=== PATIENT | female | born 1970 | race Caucasian/White ===

== ENCOUNTER → 2017-04-11 | Outpatient (CLI) | payer BC, OTHER ==
--- NOTE | 2017-04-11 19:45 | KCIC ---
Bilateral digital screening mammograms: Reason for examination: Routine screening. Comparison is made to previous studies dated 03/26/2016 and 03/24/2015. The skin and nipples show no abnormalities. No abnormal axillary lymph nodes are seen. The breast parenchyma shows scattered fibroglandular density. (Breast density: Category B.) There continues to be asymmetric parenchyma in the upper outer quadrant of the right breast which has not changed. There are no new dominant masses, suspicious calcifications or architectural distortions. A few benign calcifications are again seen. Impression: No evidence of malignancy. Recommend routine screening. BI-RADS Category 2: Benign. "Our facility is accredited by the [employer] Mammography [employer]." This patient's information has been entered into a reminder system for the patient to be notified with the results of her examination and a target date for the next mammogram. Electronically signed by: Tania Sanders MD (04/11/2017 7:42 PM)
== END | disposition home or self-care (01) ==
LOC: KCIC MAMMO 12:23
PROVIDERS: ATTEND Obstetrics & Gynecology
DX: Z12.31 Encounter for screening mammogram for malignant neoplasm of breast (principal)
CPT/HCPCS: G0202; 77067

== ENCOUNTER → 2018-04-17 | Outpatient (CLI) | payer BC, OTHER | END | disposition home or self-care (01) | LOC: KCIC MAMMO 10:16 | DX: Z12.31 Encounter for screening mammogram for malignant neoplasm of breast (principal) | CPT/HCPCS: 77063; 77067 ==

== ENCOUNTER → 2019-03-08 | Outpatient (CLI) | payer BC, OTHER ==
--- NOTE | 2019-03-08 16:00 | KCIC ---
EXAM: Pelvic sonogram. HISTORY: Breakthrough bleeding. TECHNIQUE: Transabdominal and transvaginal sonographic imaging of the pelvis was performed. COMPARISON: None. FINDINGS: The uterus measures 7.8 x 3.1 x 6.0 cm. The endometrial stripe measures 3.3 mm in thickness. The ovaries are normal in size and demonstrate normal blood flow. There is multiple nabothian cysts within the cervix. There is trace fluid within the endocervical canal. There is a uterine fibroid along the superior right uterine fundus measuring 2.3 x 2.3 x 2.0 cm. There is a calcification within the mid uterine segment. There is no pelvic free fluid. IMPRESSION: 1. 2.3 cm uterine fibroid. 2. Nabothian cysts within the cervix and trace endocervical canal fluid. 3. Sonographically unremarkable ovaries. Electronically signed by: Farida Jo MD (03/08/2019 3:56 PM) [id number]
== END | disposition home or self-care (01) ==
LOC: KCIC US 12:07
PROVIDERS: ATTEND Family Medicine
DX: N88.8 Other specified noninflammatory disorders of cervix uteri (principal); D25.9 Leiomyoma of uterus, unspecified
CPT/HCPCS: 76830; 76856

== ENCOUNTER → 2019-04-18 | Outpatient (CLI) | payer BC, OTHER ==
--- NOTE | 2019-04-18 13:43 | KCIC ---
Bilateral digital screening mammograms with 3-D tomosynthesis: Reason for examination: Routine screening. Comparison is made to previous studies dated 04/17/2018 and 04/11/2017. Bilateral mammograms in CC and oblique projections were obtained with 2-D imaging and 3-D tomosynthesis imaging on a Siemens Inspiration unit and reviewed on the workstation. Interpretation was made with the benefit of CAD. The skin and nipples show no abnormalities. No abnormal axillary lymph nodes are seen. The breast parenchyma shows scattered fatty and fibroglandular density. (Breast density: Category B.) There continues to be asymmetric parenchyma with some nodular densities in the right breast which are stable. There also continue to be small nodular parenchymal densities in the left breast which are stable. There are no new dominant masses, suspicious calcifications or architectural distortion. Impression: No evidence of malignancy. Recommend routine screening. BI-RAD Category 2: Benign. "Our facility is accredited by the [employer]ammography [employer]." This patient's information has been entered into a reminder system for the patient to be notified with the results of her examination and a target date for the next mammogram. Electronically signed by: Tania Sanders MD (04/18/2019 1:40 PM) [id number]
== END | disposition home or self-care (01) ==
LOC: KCIC MAMMO 12:34
PROVIDERS: ATTEND Obstetrics & Gynecology
DX: Z12.31 Encounter for screening mammogram for malignant neoplasm of breast (principal)
CPT/HCPCS: 77063; 77067

== ENCOUNTER → 2020-03-21 | Outpatient (CLI) | payer BC, OTHER ==
--- NOTE | 2020-03-21 20:00 | RAD ---
Exam: Right lower extremity venous duplex study INDICATION: Leg swelling TECHNIQUE: Using a combination of real-time ultrasound imaging and color-flow and pulse Doppler imaging techniques along with graded compression and augmentation, duplex evaluation of the deep venous systems of rightlower extremity was performed. Multiple images were obtained. Findings: There is no sonographic evidence for deep venous thrombosis involving the visualized deep venous structures of the right lower extremity. IMPRESSION: No acute DVT in the right lower extremities. Electronically signed by: Karin Morales MD (03/21/2020 7:57 PM) [id number]
== END ==
LOC: US 18:41
DX: M79.89 Other specified soft tissue disorders (principal); M25.571 Pain in right ankle and joints of right foot; R79.1 Abnormal coagulation profile
CPT/HCPCS: 93971

== ENCOUNTER → 2020-04-22 | Outpatient (CLI) | payer BC, OTHER ==
--- NOTE | 2020-04-22 15:51 | KCIC ---
Bilateral digital screening mammograms with 3-D tomosynthesis: Reason for examination: Routine screening. Comparison is made to previous studies dated back to 04/11/2017. Bilateral mammograms in CC and oblique projections were obtained with 2-D imaging and 3-D tomosynthesis imaging on a Siemens Inspiration unit and reviewed on the workstation. Interpretation was made with the benefit of CAD. The skin and nipples show no abnormalities. No abnormal axillary lymph nodes are seen. The breast parenchyma shows scattered fatty and fibroglandular density. (Breast density: Category B.) There continues to be asymmetric parenchyma in the right breast. There are no new dominant masses, suspicious calcifications or architectural distortion. Benign calcifications are present. Impression: No evidence of malignancy. Recommend routine screening. BI-RAD Category 2: Benign. "Our facility is accredited by the [employer] Mammography Program." This patient's information has been entered into a reminder system for the patient to be notified with the results of her examination and a target date for the next mammogram. Electronically signed by: Tania Sanders MD (04/22/2020 3:49 PM) [id number]
== END | disposition home or self-care (01) ==
LOC: KCIC MAMMO 10:28
PROVIDERS: ATTEND Family Medicine
DX: Z12.31 Encounter for screening mammogram for malignant neoplasm of breast (principal); N64.89 Other specified disorders of breast
CPT/HCPCS: 77063; 77067

== ENCOUNTER 2021-03-24 10:23 | Emergency (ER) | payer BC, OTHER ==
[~2021-03-24] VITALS: Ht 157.5 cm; Wt 61.3 kg
[2021-03-24] MEDS ORDERED: IV NORMAL SALINE 1000ML BAG 1,000 ML IV ONE ×2 (10:45→12:30)
[2021-03-24 10:46] LABS: BASO % 1 % (0-3); EOS # 0.1 x10^3/uL (0.0-0.7); EOS % 2 % (0-3); HEMATOCRIT 37.1 % (36.0-47.0); HEMOGLOBIN 12.6 g/dL (12.0-15.5); LYMPH # 0.8 x10^3/uL (1.0-4.8); LYMPH % 17 % (24-48); MEAN CORPUSCULAR HEMOGLOBIN 34 pg (25-35); MEAN CORPUSCULAR HGB CONC 34 g/dL (31-37); MEAN CORPUSCULAR VOLUME 98 fL (79-100); MONO # 0.7 x10^3/uL (0.0-1.1); MONO % 15 % (0-9); NEUT # 2.9 x10^3/uL (1.8-7.7); NEUT % 66 % (31-73); PLATELET COUNT 261 x10^3/uL (140-400); RED BLOOD COUNT 3.77 x10^6/uL (3.50-5.40); RED CELL DISTRIBUTION WIDTH 13.6 % (11.5-14.5); WHITE BLOOD COUNT 4.4 x10^3/uL (4.0-11.0)
[2021-03-24 10:58] LABS: CALCIUM 8.8 mg/dL (8.5-10.1); CREATININE 0.9 mg/dL (0.6-1.0); GFR 66.5; POTASSIUM 3.6 mmol/L (3.5-5.1)
--- NOTE | 2021-03-24 10:58 | ED.ADGEN ---
Past Medical History Past Medical History: Migraines, Other Additional Past Medical Histor: PMDD, obesity Past Surgical History: Other Additional Past Surgical Histo: sinus surgery, gastric sleeve, Gastric bypass Riri en y Smoking Status: Never Smoker Alcohol Use: Rarely Drug Use: None General Adult EDM: Chief Complaint: SYNCOPE HPI: HPI: Patient is a 50 year old female, brought to the emergency department by EMS today after having a syncopal episode while waiting in the lobby at a doctor's office to be evaluated for trigger finger. Patient states yesterday she noticed she felt lightheaded with position changes. She denies any nausea, vomiting, diarrhea, chest pain, palpitations, fever, cough, shortness of breath, swelling of her extremities, dysuria, hematuria, or increased urinary frequency. Patient denies any headache, numbness, tingling, or weakness. She denies any difficulty with speech or ambulation. She currently denies any complaints. Patient states that before she passed out she did feel sweaty all over and light headed, she denies any chest pain, palpitations, or headache prior to the syncopal episode. She currently denies any pain. She denies hitting her head when she passes out, pt did fall to the floor and the fall was witnessed by office staff who also denied any head injury. Review of Systems: Review of Systems: Complete ROS is negative unless otherwise noted in HPI. Current Medications: Current Medications Medications (Trade) Dose Ordered Sig/[facility] Start Time Stop Time Status Last Admin Dose Admin Sodium Chloride 1,000 ml @ 1,000 mls/hr 1X ONCE 03/24/21 12:30 03/24/21 13:29 DC 03/24/21 12:30 1,000 MLS/HR Allergies: Allergies: Allergies Coded Allergies Type Severity Reaction Last Updated Verified No Known Drug Allergies 03/24/21 No Physical Exam: PE: See Above Constitutional: Well developed, well nourished, no acute distress, non-toxic appearance. [] HENT: Normocephalic, atraumatic, bilateral external ears normal, nose normal. [] Eyes: PERRLA, EOMI, conjunctiva normal, no discharge. [] Neck: Normal range of motion, no stridor. [] Cardiovascular:Heart rate regular rhythm Lungs & Thorax: Respirations even and unlabored, no retractions, no respiratory distress Abdomen: soft, no tenderness Skin: Warm, dry, no erythema, no rash. [] Extremities: No cyanosis, ROM intact, no edema. [] Neurologic: Alert and oriented X 3, normal motor, normal sensory, no focal deficits noted. [] Psychologic: Affect normal, judgement normal, mood normal. [] Current Patient Data: Labs: Laboratory Tests Test 03/24/21 10:30 03/24/21 13:14 03/24/21 13:31 White Blood Count 4.4 x10^3/uL (4.0-11.0) Red Blood Count 3.77 x10^6/uL (3.50-5.40) Hemoglobin 12.6 g/dL (12.0-15.5) Hematocrit 37.1 % (36.0-47.0) Mean Corpuscular Volume 98 fL (79-100) Mean Corpuscular Hemoglobin 34 pg (25-35) Mean Corpuscular Hemoglobin Concent 34 g/dL (31-37) Red Cell Distribution Width 13.6 % (11.5-14.5) Platelet Count 261 x10^3/uL (140-400) Neutrophils (%) (Auto) 66 % (31-73) Lymphocytes (%) (Auto) 17 % (24-48) L Monocytes (%) (Auto) 15 % (0-9) H Eosinophils (%) (Auto) 2 % (0-3) Basophils (%) (Auto) 1 % (0-3) Neutrophils # (Auto) 2.9 x10^3/uL (1.8-7.7) Lymphocytes # (Auto) 0.8 x10^3/uL (1.0-4.8) L Monocytes # (Auto) 0.7 x10^3/uL (0.0-1.1) Eosinophils # (Auto) 0.1 x10^3/uL (0.0-0.7) Basophils # (Auto) 0.0 x10^3/uL (0.0-0.2) Sodium Level 142 mmol/L (136-145) Potassium Level 3.6 mmol/L (3.5-5.1) Chloride Level 106 mmol/L (98-107) Carbon Dioxide Level 24 mmol/L (21-32) Anion Gap 12 (6-14) Blood Urea Nitrogen 11 mg/dL (7-20) Creatinine 0.9 mg/dL (0.6-1.0) Estimated GFR (Cockcroft-Gault) 66.5 BUN/Creatinine Ratio 12 (6-20) Glucose Level 113 mg/dL (70-99) H Calcium Level 8.8 mg/dL (8.5-10.1) Magnesium Level 1.8 mg/dL (1.8-2.4) Total Bilirubin 0.3 mg/dL (0.2-1.0) Aspartate Amino Transferase (AST) 84 U/L (15-37) H Alanine Aminotransferase (ALT) 86 U/L (14-59) H Alkaline Phosphatase 147 U/L (46-116) H Creatine Kinase 41 U/L (26-192) Creatine Kinase MB (Mass) < 0.5 ng/mL (0.0-3.6) Creatine Kinase MB Relative Index % (0-4) Troponin I Quantitative < 0.017 ng/mL (0.000-0.055) < 0.017 ng/mL (0.000-0.055) Total Protein 6.1 g/dL (6.4-8.2) L Albumin 3.7 g/dL (3.4-5.0) Albumin/Globulin Ratio 1.5 (1.0-1.7) Lipase 123 U/L (73-393) Urine Collection Type Void Urine Color Yellow Urine Clarity Clear Urine pH 7.0 (<5.0-8.0) Urine Specific [place] <=1.005 (1.000-1.030) Urine Protein Negative mg/dL (NEG-TRACE) Urine Glucose (UA) Negative mg/dL (NEG) Urine Ketones (Stick) Negative mg/dL (NEG) Urine Blood Negative (NEG) Urine Nitrite Negative (NEG) Urine Bilirubin Negative (NEG) Urine Urobilinogen Dipstick 0.2 mg/dL (0.2 mg/dL) Urine Leukocyte Esterase Negative (NEG) Urine RBC Occ /HPF (0-2) Urine WBC Occ /HPF (0-4) Urine Squamous Epithelial Cells Many /LPF Urine Bacteria Few /HPF (0-FEW) Laboratory Tests 03/24/21 10:30 Laboratory Tests 03/24/21 10:30 Vital Signs: Vital Signs Date Time Temp Pulse Resp B/P (MAP) Pulse Ox O2 Delivery O2 Flow Rate FiO2 03/24/21 14:19 68 16 125/60 (81) 100 Room Air 03/24/21 10:23 97.9 97.9 EKG: EK-sinus rhythm, rate 69, normal ECG, no STEMI, read by Dr. Simon [] 1321-sinus rhythm, rate 60, normal ECG, no STEMI, read by Dr. Simon Heart Score: C/O Chest Pain: No Risk Scores: Score 0 - 3: 2.5% MACE over next 6 weeks - Discharge Home Score 4 - 6: 20.3% MACE over next 6 weeks - Admit for Clinical Observation Score 7 - 10: 72.7% MACE over next 6 weeks - Early Invasive Strategies Radiology/Procedures: Radiology/Procedures: PROCEDURE: CHEST AP ONLY EXAM: CHEST ONE VIEW. HISTORY: Chest pain, syncope. COMPARISON: None. FINDINGS: A frontal view of the chest is obtained. There are no confluent infiltrates. There is no pneumothorax or pleural effusion. The heart is not enlarged. Small metallic objects project over the midline base of the neck. IMPRESSION: 1. No confluent infiltrates. Electronically signed by: Asael Bender MD (03/24/2021 11:11 AM) [id number][] Course & Med Decision Making: Course & Med Decision Making Pertinent Labs and Imaging studies reviewed. (See chart for details) 50-year-old female presents emergency department for evaluation after a syncopal episode. Work-up included labs, serial troponins, serial EKGs, and imaging. CBC is unremarkable, CMP reveals a mildly elevated liver enzymes with AST of 84, ALT of 86, and alk phos of 147, CK index and troponin are negative initially, troponin remains less than 0.173 hours after arrival. UA is unremarkable Chest x-ray revealed no acute findings. Patient denied hitting her head, she denied any complaints of a headache, or vision changes. Patient's vital signs were stable throughout emergency department stay. She did report having fullness in her right ear for several days with some nasal congestion and allergy symptoms. I encouraged patient to take her Flonase 2 sprays each nare daily, I provided her with Dr. Ayesha Fraser's information for follow-up. Patient was encouraged to return to the ER if symptoms worsen or fever develop. Patient verbalized an understanding of home care, medications, follow-up, and return to ED instructions and was in agreement with the plan of care. [] Dragon Disclaimer: Dragon Disclaimer: This electronic medical record was generated, in whole or in part, using a voice recognition dictation system. Departure Departure Impression: Primary Impression: Episode of syncope Additional Impression: Otitis media of right ear Disposition: HOME / SELF CARE / HOMELESS Condition: STABLE Referrals: FLY NAYAK DO (PCP) AYESHA FRASER MD Patient Instructions: Serous Otitis Media, Syncope, [id number] Additional Instructions: Follow-up with Dr. Fraser for further evaluation of your ear discomfort and allergy symptoms. Change positions slowly, increase fluids, follow-up with your primary care doctor in the next 1 to 2 days for reevaluation, return to the ER if symptoms worsen or fever develops. Problem Qualifiers Primary Impression: Episode of syncope Syncope type: unspecified Qualified Codes: R55 - Syncope and collapse Additional Impression: Otitis media of right ear Otitis media type: serous Chronicity: acute Recurrence: not specified as recurrent Qualified Codes: H65.01 - Acute serous otitis media, right ear SHALINI DUGAN APRN Mar 24, 2021 10:58
[2021-03-24 11:03] LABS: ALBUMIN 3.7 g/dL (3.4-5.0); ALBUMIN/GLOBULIN RATIO 1.5 (1.0-1.7); MAGNESIUM 1.8 mg/dL (1.8-2.4); TOTAL BILIRUBIN 0.3 mg/dL (0.2-1.0); TOTAL PROTEIN 6.1 g/dL (6.4-8.2)
--- NOTE | 2021-03-24 11:14 | RAD ---
EXAM: CHEST ONE VIEW. HISTORY: Chest pain, syncope. COMPARISON: None. FINDINGS: A frontal view of the chest is obtained. There are no confluent infiltrates. There is no pneumothorax or pleural effusion. The heart is not en larged. Small metallic objects project over the midline base of the neck. IMPRESSION: 1. No confluent infiltrates. Electronically signed by: Asael Bender MD (03/24/2021 11:11 AM) [id number]
[2021-03-24 11:19] LABS: CREATINE KINASE 41 U/L (26-192)
[2021-03-24 13:39] LABS: BILIRUBIN,URINE NEGATIVE (NEG); CLARITY,URINE CLEAR; COLOR,URINE YELLOW; NITRITE,URINE NEGATIVE (NEG); PROTEIN,URINE NEGATIVE (NEG-TRACE); UROBILINOGEN,URINE 0.2 mg/dL (0.2 mg/dL)
[2021-03-24 13:55] LABS: BACTERIA,URINE FEW /HPF (0-FEW); RBC,URINE OCC /HPF (0-2); WBC,URINE OCC /HPF (0-4)
[2021-03-24 14:19] VITALS: BP 125/60
--- NOTE | 2021-03-24 15:40 | EKG ---
[facility] [address] [place] [address] Test Date: 2021-03-24 Test Time: 10:28:58 Pat Name: ZONIA FLORENTINO Department: Room: Gender: F Digital Content Producer: : 1970 Requested By: SHALINI DUGAN Order Number: [id number] Reading MD: Measurements Intervals [place] Rate: 69 P: 58 TN: 146 QRS: 37 QRSD: 80 T: 41 QT: 394 QTc: 424 Interpretive Statements SINUS RHYTHM NORMAL ECG RI6.02 No previous ECG available for comparison
--- NOTE | 2021-03-24 15:42 | EKG ---
[facility] [address] [place] [address] Test Date: 2021-03-24 Test Time: 13:21:09 Pat Name: ZONIA FLORENTINO Department: Room: Gender: F Dovetailer: : 1970 Requested By: SHALINI DUGAN Order Number: [id number] Reading MD: Measurements Intervals [place] Rate: 60 P: 51 GA: 142 QRS: 16 QRSD: 80 T: 25 QT: 432 QTc: 436 Interpretive Statements SINUS RHYTHM NORMAL ECG RI6.02 Compared to ECG 03/24/2021 10:28:58 No significant changes
== END 2021-03-24 14:26 | disposition home or self-care (01) ==
LOC: ER 10:23
DX: R55 Syncope and collapse (principal); H66.91 Otitis media, unspecified, right ear; G43.909 Migraine, unspecified, not intractable, without status migrainosus
CPT/HCPCS: 36415; 71045; 80053; 81001; 82553; 83690; 83735; 84484; 85025; 93005; 96360; 96361; 99285; J7030

== ENCOUNTER → 2021-04-22 | Outpatient (CLI) | payer BC, OTHER ==
[2021-03-24 14:19] VITALS: BP 125/60
--- NOTE | 2021-04-22 15:03 | KCIC ---
Bilateral digital screening mammograms with 3-D tomosynthesis: Reason for examination: Routine screening. Comparison is made to previous studies dated back to 03/27/2014. Bilateral mammograms in CC and oblique projections were obtained with 2-D imaging and 3-D tomosynthes is imaging on a Siemens Inspiration unit and reviewed on the workstation. Interpretation was made wit sariah the benefit of CAD. The skin and nipples show no abnormalities. No abnormal axillary lymph nodes are seen. The breast par enchyma shows scattered fatty and fibroglandular density. (Breast density: Category B.) There continu es to be some asymmetric parenchyma in the right breast compared to the left which is stable. There a re no new dominant masses, suspicious calcifications or architectural distortion. A few benign calcif ications are present. Impression: No evidence of malignancy. Recommend routine screening. BI-RAD Category 2: Benign. "Our facility is accredited by the [employer] Mammography Program." This patient's information has been entered into a reminder system for the patient to be notified wit h the results of her examination and a target date for the next mammogram. Electronically signed by: Tania Sanders MD (04/22/2021 3:00 PM) [email or web address]
== END ==
LOC: KCIC MAMMO 13:11
PROVIDERS: ATTEND Obstetrics & Gynecology
DX: Z12.31 Encounter for screening mammogram for malignant neoplasm of breast (principal)
CPT/HCPCS: 77063; 77067

== ENCOUNTER → 2021-08-05 | Outpatient (CLI) | payer BC, OTHER ==
--- NOTE | 2021-08-05 09:21 | KCIC ---
Complete abdominal ultrasound 08/05/2021 INDICATION: Elevated liver enzymes COMPARISON STUDY: None FINDINGS: The pancreas is poorly visualized. Visualized portions of the IVC and aorta are unremarkabl e. The liver is normal in size measuring 16.7 cm longitudinally. Echotexture is within normal limits. No intrahepatic biliary dilatation is identified. Portal venous flows normal direction. The gallbladder demonstrates no evidence of wall thickening, stones, or sludg e. Common bile duct is normal diameter at 3 mm. The right kidney measures 10.9 cm in length. There is a cyst in the superior right kidney measuring 1.6 cm in diameter. Spleen is normal in size measuring 9.7 cm longitudinally. The left kidney measures 10.8 cm longitudinally. Left kidney is unremarkable in appearance. IMPRESSION: 1. 1.6 cm right renal cyst 2. Otherwise normal sonographic appearance of the abdomen Electronically signed by: Darryl Hamm MD (08/05/2021 9:19 AM) [id number]
== END ==
LOC: KCIC US 07:59
PROVIDERS: ATTEND Nurse Practitioner Family
DX: N28.1 Cyst of kidney, acquired (principal); R94.5 Abnormal results of liver function studies
CPT/HCPCS: 76700